=== PATIENT | male | born 1990 | race Caucasian/White ===

== ENCOUNTER 2017-11-27 11:52 | Emergency (ER) | payer MEDICAID, SELFPAY ==
[2017-11-27 11:57] VITALS: BP 142/89; PULSE 84; RESP 16; TEMP 37.2; O2SAT 96
--- NOTE | 2017-11-27 12:10 | ED.GENADUL_ITS ---
Disposition Clinical Impression: URI (upper respiratory infection), Acute bronchitis Disposition: HOME Condition: Stable Instructions: Upper Respiratory Infection (ED), Acute Bronchitis (ED) Additional Instructions: - Take Sudafed as needed and directed for nasal congestion and headache. - Alternate Tylenol and Motrin as needed and directed for pain, headache or sore throat. - Take the steroids as directed. - Use the inhaler as needed and directed if you have any wheezing or shortness of breath. - If your symptoms do not improve over the next 2-3 days, you may start the antibiotics. - Follow up with a primary care doctor in 1 week for re-evaluation. - Return to the emergency department with any worsening or new concerning symptoms. Prescriptions: Albuterol [Proair Hfa] 2 puff IH Q4H PRN PRN #1 inh PRN Reason: Azithromycin [Zithromax] 500 mg PO DAILY 5 Days tab Prednisone 50 mg PO DAILY 4 Days tablet Forms: Work Release Medical Decision Making - Medical Decision Making 27-year-old male with nasal congestion, rhinorrhea, cough with yellow mucus for the past 2 days. Nasal congestion and headache bothering him the most. Denies fever, neck pain, sore throat or shortness of breath. Vitals within normal limits. Afebrile with normal oxygen saturation. He appears nontoxic and in no acute distress. Scattered wheezing on exam. Normal ENT exam including normal pharynx, ears and no sinus tenderness to palpation. Differential diagnosis includes URI, acute bronchitis, sinusitis. No focal area of decreased breath sounds, hypoxia, or fever, so doubt pneumonia. Pt offered CXR but declines. Explained to patient that his symptoms could worsen and develop into a bacterial infection however they are most likely viral at this time. Will give a dose of prednisone here and send home with a prescription for prednisone, albuterol as needed although patient denies any shortness of breath at this time, and antibiotics to start if symptoms persist or worsen. Patient was placed on care management list to arrange for follow-up with a primary care doctor in 1 week. He was instructed to return here if worse. Patient requested work note. History of Present Illness - General Chief complaint: RespSymp Stated complaint: URI Time Seen by Provider: 11/27/17 11:53 Source: patient Mode of arrival: ambulatory Limitations: no limitations - History of Present Illness Initial comments: Pt is a 27yo M who presents to the ED w/ nasal congestion, rhinorrhea, and cough with yellow mucus x 2 days. Pt has taken DayQuil occasionally for his symptoms. He admits to occasional sore throat. Patient states the nasal congestion headache is bothering him the most. Patient states he has been drinking well but eating less than usual due to decreased appetite. Patient denies known fever or shortness of breath. 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 Patient states he needs a work note to return to work. - Related Data Albuterol [Proair Hfa] 2 puff IH Q4H PRN PRN #1 inh 11/27/17 Azithromycin [Zithromax] 500 mg PO DAILY 5 Days tab 11/27/17 Prednisone 50 mg PO DAILY 4 Days tablet 11/27/17 Allergies Allergy/AdvReac Type Severity Reaction Status Date / Time No Known Allergies Allergy Unverified 11/27/17 12:24 Review of Systems Constitutional: denies: chills, fever Eyes: denies: eye pain, eye discharge, vision change ENT: congestion. denies: ear pain, throat pain, dental pain, hearing loss Respiratory: cough. denies: shortness of breath Cardiovascular: denies: chest pain, dyspnea on exertion Gastrointestinal: denies: abdominal pain, nausea, vomiting Genitourinary: denies: urgency, dysuria, frequency Musculoskeletal: denies: back pain Skin: denies: rash, lesions Neurological: denies: headache, weakness, numbness Past Medical History - Past Medical History Medical history: no medical history Surgical history: other (Dental surgery) - Social History Smoking status: current everyday smoker Alcohol use: none Drug use: none General Exam - General Limitations: no limitations General appearance: alert, in no apparent distress - Head Head exam: Present: atraumatic, normocephalic - Eye Eye exam: Present: PERRL, EOMI - ENT ENT exam: Present: normal orophraynx, mucous membranes moist, TM's normal bilaterally, other (No bilateral frontal or maxillary sinus tenderness or fullness) - Neck Neck exam: Present: normal inspection. Absent: lymphadenopathy - Respiratory Respiratory exam: Present: other (scattered wheezing throughout) - Cardiovascular Cardiovascular Exam: Present: regular rate, normal rhythm. Absent: bradycardia , tachycardia - GI/Abdominal GI/Abdominal exam: Present: soft, normal bowel sounds. Absent: distended, tenderness, guarding, rebound, rigid - Neurological Exam Neurological exam: Present: alert, oriented X3 - Psychiatric Psychiatric exam: Present: normal affect - Skin Skin exam: Present: warm, dry, intact Course Vital Signs - 24 hr 11/27/17 11:57 Temperature 98.9 F Pulse 84 Respiratory 16 Rate Blood Pressure 142/89 Pulse Oximetry 96
[2017-11-27 12:23] VITALS: BP 142/89; PULSE 84; RESP 16; TEMP 37.2; O2SAT 96
--- NOTE | 2017-11-30 07:56 | PDOC.ERCMPRO ---
Care Management Progress Note 11/27-Dr. Johnson requested assistance with a PCP ([employer]) f/u in 1-2 weeks for bronchitis. Patient also needs to establish care. Referral faxed to [facility].
--- NOTE | 2017-11-30 07:57 | CMPROGNOTE_ITS ---
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 Patient also needs to establish care. Referral faxed to [facility].
== END 2017-11-27 12:23 | disposition home or self-care (01) ==
LOC: ER 11-11 09:50
PROVIDERS: Emergency Provider Physician Assistant
DX: J20.9 Acute bronchitis, unspecified (principal); J06.9 Acute upper respiratory infection, unspecified
CPT/HCPCS: 99283; J7512